=== PATIENT | female | born 2005 | race Caucasian/White ===

== ENCOUNTER 2024-12-30 21:02 | Emergency (ER) | payer BC ==
[2024-12-30 22:29] LABS: APPEARANCE,URINE CLOUDY (Clear); BILIRUBIN,URINE 1+ (Negative); COLOR,URINE YELLOW (Yellow); GLUCOSE,URINE NEGATIVE (Negative); KETONES,URINE 4+ (Negative); LEUKOCYTE ESTERASE,URINE NEGATIVE (Negative); NITRITE,URINE NEGATIVE (Negative); OCCULT BLOOD,URINE NEGATIVE (Negative); PROTEIN,URINE 1+ (Negative); UROBILINOGEN,URINE 0.2 (0.2-1.0)
[2024-12-30 22:36] LABS: BACTERIA,URINE MANY /hpf (FEW); MUCUS,URINE MODERATE /hpf (FEW); RBC,URINE 0-5 /hpf (0-5)
[2024-12-30] MEDS: Sodium Chloride 0.9% 1,000 ML IV ONE (23:52)
[2024-12-30] MEDS: Sodium Chloride 0.9% 10 ML Syringe FLUSH PRN (23:52)
[2024-12-30] MEDS: Ondansetron 4 MG/2 ML SDV IVPUSH ONE (23:53)
[2024-12-30] MEDS: Acetaminophen 325 MG Tab PO ONE (23:53)
[2024-12-31 00:22] LABS: BASOPHILS PERCENT AUTO 0.2 % (0.0-1.0); EOSINOPHILS PERCENT AUTO 0.4 % (0.0-6.0); HEMATOCRIT 43.6 % (37.0-47.0); HEMOGLOBIN 14.7 gm/dl (12.0-16.0); IMMATURE GRAN ABSOLUTE AUTO 0.03 K/mm3 (0.00-0.05); IMMATURE GRAN PERCENT AUTO 0.3 % (0.0-0.4); LYMPHOCYTES ABSOLUTE AUTO 1.6 K/mm3 (1.0-4.8); LYMPHOCYTES PERCENT AUTO 17.5 % (24.0-44.0); MEAN CORPUSCULAR HEMOGLOBIN 28.8 pg (28.0-32.0); MEAN CORPUSCULAR HGB CONC 33.7 g/dl (32.0-36.0); MEAN CORPUSCULAR VOLUME 85.5 fl (83.0-99.0); MEAN PLATELET VOLUME 9.7 fl (9.4-12.3); MONOCYTES ABSOLUTE AUTO 0.3 K/mm3 (0.0-0.8); MONOCYTES PERCENT AUTO 3.7 % (0.0-8.0); NEUTROPHILS ABSOLUTE AUTO 7.1 K/mm3 (1.8-7.7); NEUTROPHILS PERCENT AUTO 77.9 % (41.0-71.0); PLATELET COUNT,PLT 220 K/mm3 (150-400)
[2024-12-31 01:11] LABS: POTASSIUM,K 3.4 mEq/L (3.5-5.1)
[2024-12-31 01:12] LABS: A/G RATIO 0.9 (1-2); ALBUMIN 3.5 g/dl (3.4-5.0); ANION GAP 14.4 (5-15); BILIRUBIN TOTAL 0.6 mg/dL (0.2-1.0); CALCIUM 8.9 mg/dL (8.5-10.1); CREATININE 0.8 mg/dL (0.55-1.02); EST CRCL DRUG DOSING (CG) 87.98 mL/min; MAGNESIUM 1.9 mg/dL (1.8-2.4); PROTEIN TOTAL,TP 7.5 g/dl (6.4-8.2)
[2024-12-31 03:53] LABS: C. TRACHOMATIS BY PCR NOT DETECTED; N. GONORRHOEAE BY PCR NOT DETECTED
== END 2024-12-31 05:53 | disposition home or self-care (01) ==
LOC: JD.ED 21:02
DX: O99.891 Other specified diseases and conditions complicating pregnancy (principal); O21.0 Mild hyperemesis gravidarum; R10.13 Epigastric pain; R10.31 Right lower quadrant pain; R10.32 Left lower quadrant pain; Z91.040 Latex allergy status; Z3A.10 10 weeks gestation of pregnancy
CPT/HCPCS: 36415; 76705; 76705-26; 76817; 76817-26; 80053; 81001; 81515; 83690; 83735; 84702; 85025; 86900; 86901; 87491; 87591; 96361; 96374; 99283; 99284-25; A9270-GY; J2405; J7030